=== PATIENT | male | born 1985 | race Caucasian/White ===

== ENCOUNTER 2018-10-25 08:31 | Emergency (ER) | payer OTHER ==
[~2018-10-25] VITALS: Ht 177.8 cm; Wt 97.5 kg
[2018-10-25 08:32] VITALS: BP 138/89
--- NOTE | 2018-10-25 08:37 | NUR ---
Patient ambulated to bed 9. RN evaluating patient at bedside.
--- NOTE | 2018-10-25 08:54 | NUR ---
Dr. Spain evaluating patient at bedside.
[2018-10-25] MEDS ORDERED: NITROGLYCERIN 0.4 MG TAB SL ONE ×2 (08:55→10:41)
[2018-10-25] MEDS ORDERED: ASPIRIN 81 MG TAB.CHEW PO ONE (08:55)
--- NOTE | 2018-10-25 08:56 | NUR ---
BIB SELF. AAO X4 C/O RIGHT UPPER CHEST PAIN RADIATING TO RIGHT UPPER ARM X 3 DAYS. PT DENIES TAKING MEDS, FEVER. NO FACIAL ASSYMETRY, FULL CLEAR SPEECH. DENIES N/V/D; SKIN IS PINK/WARM/DRY; AAOX4 WITH EVEN AND STEADY GAIT; PT DENIES ANY FEVER, SOB, OR COUGH AT THIS TIME; PATIENT STATES PAIN OF 6/10 AT THIS TIME; VSS; PATIENT POSITIONED FOR COMFORT; HOB ELEVATED; BEDRAILS UP X2; BED DOWN. ER MD MADE AWARE OF PT STATUS.
--- NOTE | 2018-10-25 09:04 | NUR ---
line maintenance technician at bedside.
--- NOTE | 2018-10-25 09:12 | NUR ---
PT STATES THE CHEST PAIN HAS BEEN IMPROVED AND HE FEELS BETTER, CHEST PAIN 5/10.
[2018-10-25] MEDS ORDERED: MORPHINE SULFATE 4 MG/ML SYR IVP ONE ×2 (09:30→10:20)
[2018-10-25] MEDS ORDERED: INSULIN REGULAR, HUMAN 100 UNIT/ML VIAL SUBQ ONE (09:30)
[2018-10-25] MEDS ORDERED: NACL 0.9% 1,000 ML IV ONE (09:30)
--- NOTE | 2018-10-25 09:30 | NUR ---
Dr. Spain re-evaluating patient at bedside.
[2018-10-25 09:41] LABS: BASOPHILS % (AUTO) 0.4 % (0.0-2.0); EOSINOPHILS # (AUTO) 0.2 K/uL (0-0.4); EOSINOPHILS % (AUTO) 1.6 % (0.0-4.0); HEMATOCRIT 47.1 % (36-52); HEMOGLOBIN 15.9 g/dL (12.0-18.0); LYMPHOCYTES # (AUTO) 3.3 K/uL (2.0-11.5); LYMPHOCYTES % (AUTO) 26.1 % (20.5-51.1); MEAN CORPUSCULAR HEMOGLOBIN 29 pg (27-31); MEAN CORPUSCULAR HGB CONC 34 g/dL (33-37); MEAN CORPUSCULAR VOLUME 86.6 fL (80-94); MONOCYTES # (AUTO) 0.9 K/uL (0.8-1.0); MONOCYTES % (AUTO) 7.1 % (1.7-9.3); NEUTROPHILS # (AUTO) 8.1 K/uL (1.8-7.7); NEUTROPHILS % (AUTO) 64.8 % (42.2-75.2); PLATELET COUNT (AUTO) 314 K/uL (140-450); RED BLOOD CELL COUNT(AUTO) 5.43 MIL/uL (4.20-6.10); RED CELL DISTRIBUTION WIDTH 13.2 % (11.6-13.7); WHITE BLOOD COUNT (AUTO) 12.5 K/uL (4.8-10.8)
[2018-10-25 09:50] LABS: ALBUMIN 3.9 g/dL (3.4-5.0); ANION GAP 13.2 (8-16); CARBON DIOXIDE 28.7 mmol/L (21-32); CREATININE 1.1 mg/dL (0.7-1.3); POTASSIUM 3.9 mmol/L (3.5-5.1); TOTAL BILIRUBIN 0.6 mg/dL (0.0-1.0)
[2018-10-25 09:57] LABS: APPEARANCE,URINE CLEAR (CLEAR); BILIRUBIN,URINE NEGATIVE (NEGATIVE); BLOOD, URINE NEGATIVE (NEGATIVE); COLOR,URINE YELLOW (YELLOW); LEUKOCYTE ESTERASE ,URINE NEGATIVE (NEGATIVE); NITRITE, URINE NEGATIVE (NEGATIVE); UGLUCOSE 3+ (NEGATIVE)
[2018-10-25 10:03] LABS: BARBITURATE, URINE NEG. ng/ml (NEG <=200); BENZODIAZEPINE, URINE NEG. ng/mL (NEG <=200); CANNABINOID, URINE NEG. ng/mL (NEG <=50); COCAINE, URINE NEG. ng/mL (NEG <=300); OPIATE, URINE NEG. ng/mL (NEG <=2000); PHENCYCLIDINE SCREEN,URINE NEG. ng/mL (NEG <=25)
--- NOTE | 2018-10-25 10:31 | NUR ---
Three doses of nitroglycerin 0.4mg/tab have been given to pt.
--- NOTE | 2018-10-25 11:03 | NUR ---
PT STATES HAVING 7/10 CHEST PAIN, SECOND DOSE OF MORPHINE 4MG GIVEN TO PT AT THIS TIME.
--- NOTE | 2018-10-25 11:20 | NUR ---
DR. FREIRE IS EVALUATING PT AT BEDSIDE.
[2018-10-25] MEDS ORDERED: KETOROLAC 30 MG/ML VIAL IVP ONE (11:25)
--- NOTE | 2018-10-25 11:52 | NUR ---
US tech at bedside for exam.
--- NOTE | 2018-10-25 12:40 | NUR ---
Dr. Spain re-evaluating patient at bedside.
[2018-10-25 12:59] VITALS: BP 100/55
--- NOTE | 2018-10-25 12:59 | NUR ---
IV removed, catheter intact and site benign. Applied folded 4x4 gauze and tape to stop bleeding.
--- NOTE | 2018-10-25 12:59 | NUR ---
Patient discharged with v/s stable. Written and verbal after care instructions given and explained. Patient alert, oriented and verbalized understanding of instructions. Ambulatory with steady gait. All questions addressed prior to discharge. ID band removed. Patient advised to follow up with PMD. Rx of [place] 5mg-325mg and Motrin 800mg given. Patient educated on indication of medication including possible reaction and side effects. Opportunity to ask questions provided and answered.
== END 2018-10-25 12:59 | disposition home or self-care (01) ==
LOC: MED 08:31
DX: R07.89 Other chest pain (principal); E11.65 Type 2 diabetes mellitus with hyperglycemia
CPT/HCPCS: 36415; 71045; 80053; 80305; 81003; 83690; 84484; 85025; 85379; 93005; 93971; 96361; 96372; 96374; 96375; 96376; 99284; J1815; J1885; J2270; J7030; Q0092